=== PATIENT | male | born 1990 | race Caucasian/White ===

== ENCOUNTER 2016-09-22 00:38 | Emergency (ER) | payer MEDICAID ==
[~2016-09-22] VITALS: Ht 165.1 cm; Wt 90.0 kg
[2016-09-22 00:41] VITALS: BP_SYST 150
== END 2016-09-22 05:11 | disposition left against medical advice (07) ==
LOC: ER 00:41
DX: R51 Headache (principal); Z53.21 Procedure and treatment not carried out due to patient leaving prior to being seen by health care provider

== ENCOUNTER 2023-05-30 18:10 | Emergency (ER) | payer MEDICAID, OTHER ==
[~2023-05-30] VITALS: Ht 177.8 cm; Wt 118.0 kg
[2023-05-30 18:29] VITALS: O2SAT 96
[2023-05-30] MEDS ORDERED: MORPHINE SULFATE 4 MG/ML INJ (FOR IV/IM USE) IV STA (18:52)
[2023-05-30] MEDS ORDERED: ONDANSETRON HCL 4MG/2ML INJ IV STA (18:52)
[2023-05-30] MEDS: SODIUM CHLORIDE 0.9% 1,000 ML IV ONE (19:00)
[2023-05-30] MEDS ORDERED: TETANUS, DIPHTHERIA, PERTUSSIS VAC/PF 0.5ML (>10YR OLD) IM ONE (19:00)
[2023-05-30 19:42] LABS: BASOPHILS % 1.1 % (0.0-2.0); EOSINOPHILS % 0.6 % (0.0-5.0); HEMATOCRIT. 38.2 % (42.0-52.0); HEMOGLOBIN. 13.2 g/dL (14.0-18.0); LYMPHOCYTES % 26.3 % (20.0-50.0); MEAN CORPUSCULAR HEMOGLOBIN 32.5 pg (28.0-32.0); MEAN CORPUSCULAR HGB CONC 34.5 g/dL (31.0-37.0); MEAN PLATELET VOLUME 7.7 fl (7.4-10.4); MONOCYTES % 8.3 % (2.0-8.0); NEUTROPHILS % 63.7 % (40.0-76.0); PLATELET 314 x1000/uL (130-400); RED BLOOD CELL COUNT 4.07 mill/uL (4.7-6.1); RED CELL DISTRIBUTION WIDTH 13.5 % (11.6-14.6); WHITE BLOOD COUNT 8.1 x1000/uL (4.5-11.0)
[2023-05-30 19:57] LABS: ALANINE AMINOTRANSFERASE 463 IU/L (10-49); ALBUMIN 4.8 g/dL (3.2-4.8); ASPARTATE AMINOTRANSFERASE 215 IU/L (<34); BILIRUBIN TOTAL 0.3 mg/dL (0.1-1.0); CALCIUM 8.7 mg/dL (8.7-10.4); CARBON DIOXIDE 20 mEq/L (21-32); CHLORIDE 108 mEq/L (98-107); CREATININE 0.8 mg/dL (0.6-1.3); ETHANOL BLOOD 254 mg/dL (<10); GLUCOSE 98 mg/dL (70-105); POTASSIUM 3.8 mEq/L (3.5-5.1); PROTEIN TOTAL 7.7 g/dL (6.0-8.3); SODIUM 139 mEq/L (136-145); UREA NITROGEN BLOOD 8 mg/dL (9-23)
[2023-05-30] MEDS: TETANUS, DIPHTHERIA, PERTUSSIS VAC/PF 0.5ML (>10YR OLD) IM ONE (21:15)
[2023-05-30] MEDS: ONDANSETRON HCL 4MG/2ML INJ IV NR (21:31)
[2023-05-30] MEDS: MORPHINE SULFATE 4 MG/ML INJ (FOR IV/IM USE) IV NR (21:31)
[2023-05-30 21:34] VITALS: BP 125/80; PULSE 96; RESP 20; TEMP 98.4
[2023-05-30] MEDS ORDERED: AMOX1TAB16 MT (21:56)
[2023-05-30] MEDS ORDERED: IBUP-2028 MT (21:56)
== END 2023-05-30 22:15 | disposition home or self-care (01) ==
LOC: ER 18:10
DX: S71.151A Open bite, right thigh, initial encounter (principal); S71.131A Puncture wound without foreign body, right thigh, initial encounter; R00.0 Tachycardia, unspecified; W54.0XXA Bitten by dog, initial encounter; Y93.89 Activity, other specified; Y92.89 Other specified places as the place of occurrence of the external cause; Y99.8 Other external cause status
CPT/HCPCS: 80053; 80320; 85025; 36415; 73552; 73564; 73590; 90715; 93005; 90471; 96361; 96374; 96375; 99285; J2405; J2270; J7030; Z7610 ×2; G0480

== ENCOUNTER 2023-07-03 16:01 | Inpatient (IN) | payer OTHER ==
[~2023-07-03] VITALS: Ht 177.8 cm; Wt 114.3 kg
[~2023-07-03 16:01] MED LIST: AMOX1TAB16 MT; IBUP-2028 MT
[2023-07-03 16:34] LABS: BASOPHILS % 0.5 % (0.0-2.0); EOSINOPHILS % 0.5 % (0.0-5.0); HEMATOCRIT. 41.1 % (42.0-52.0); HEMOGLOBIN. 14.3 g/dL (14.0-18.0); LYMPHOCYTES % 11.5 % (20.0-50.0); MEAN CORPUSCULAR HEMOGLOBIN 32.5 pg (28.0-32.0); MEAN CORPUSCULAR HGB CONC 34.9 g/dL (31.0-37.0); MEAN CORPUSCULAR VOLUME 93.1 fL (80.0-94.0); MEAN PLATELET VOLUME 7.8 fl (7.4-10.4); NEUTROPHILS % 83.5 % (40.0-76.0); PLATELET 162 x1000/uL (130-400); RED BLOOD CELL COUNT 4.41 mill/uL (4.7-6.1); RED CELL DISTRIBUTION WIDTH 12.9 % (11.6-14.6); WHITE BLOOD COUNT 10.2 x1000/uL (4.5-11.0)
[2023-07-03 16:40] LABS: CHLORIDE 102 mEq/L (98-107); SODIUM 134 mEq/L (136-145)
[2023-07-03 16:41] LABS: CALCIUM 10.3 mg/dL (8.7-10.4); CARBON DIOXIDE 21 mEq/L (21-32)
[2023-07-03 16:46] LABS: CREATININE 1.1 mg/dL (0.6-1.3); GLUCOSE 110 mg/dL (70-105); UREA NITROGEN BLOOD 16 mg/dL (9-23)
[2023-07-03 17:56] LABS: CLARITY URINE CLOUDY (CLEAR); COLOR URINE DARK YELLOW (YELLOW); GLUCOSE URINE NEGATIVE (NEGATIVE); KETONES URINE 3+ (NEGATIVE); LEUKOCYTE ESTERASE URINE TRACE (NEGATIVE); NITRITE URINE NEGATIVE (NEGATIVE); OCCULT BLOOD URINE NEGATIVE (NEGATIVE); PROTEIN URINE 2+ (NEGATIVE); SPECIFIC GRAVITY URINE 1.026 (1.005-1.030)
[2023-07-03 18:06] LABS: ALANINE AMINOTRANSFERASE 184 IU/L (10-49); ALBUMIN 5.3 g/dL (3.2-4.8); ASPARTATE AMINOTRANSFERASE 320 IU/L (<34); BILIRUBIN DIRECT 0.4 mg/dL (<=3.0); PROTEIN TOTAL 9.3 g/dL (6.0-8.3)
[2023-07-03 18:30] LABS: HYALINE CASTS URINE 0-5 /lpf; RBC URINE NONE SEEN /hpf (0-2); WBC URINE 0-2 /hpf (0-2)
[2023-07-03 18:31] LABS: BACTERIA URINE TRACE; SQUAMOUS EPITHELIAL CELL URINE FEW /lpf (RARE/1+)
[2023-07-03] MEDS: LORAZEPAM 1MG TABLET PO ONE (18:34)
[2023-07-03] MEDS: FAMOTIDINE 20MG TABLET PO ONE (18:34)
[2023-07-03] MEDS: ONDANSETRON 4MG ODT PO ONE (18:34)
[2023-07-03 18:36] LABS: ETHANOL BLOOD 59 mg/dL (<10)
[2023-07-03 18:39] LABS: TROPONIN I HIGH SENSITIVITY < 4 ng/L (3.0-53)
[2023-07-03] MEDS ORDERED: FOLIC ACID 1 MG, THIAMINE HCL 100 MG, MVI, ADULT NO.1 10 ML in DEXTROSE 5% WATER 1,000 ML IV ONE (22:15)
[2023-07-03] MEDS ORDERED: MIDAZOLAM HCL 2 MG/2 ML VIAL IV ONE (22:15)
[2023-07-03] MEDS: SODIUM CHLORIDE 0.9% 1,000 ML IV ONE (23:10)
[2023-07-04 01:30] VITALS: BP 137/89; PULSE 111; RESP 17; TEMP 97.4
[2023-07-04] MEDS ORDERED: ONDANSETRON HCL 4MG/2ML INJ IV PRN ×2 (02:15→14:30)
[2023-07-04] MEDS: GUAIFENESIN-DM 200MG-20MG/10ML UDC PO PRN (04:38)
[2023-07-04] MEDS: CHLORDIAZEPOXIDE 25MG CAPSULE PO SCH (05:52)
[2023-07-04 08:00] VITALS: BP 130/90; PULSE 98; RESP 20; TEMP 100.6
[2023-07-04 08:03] LABS: HEPATITIS B SURFACE ANTIGEN NEGATIVE (Negative)
[2023-07-04] MEDS: MULTIVITAMINS,THER W-MINERALS TABLET PO SCH (08:23)
[2023-07-04] MEDS: THIAMINE HCL 100MG TABLET PO SCH (08:23)
[2023-07-04] MEDS: FOLIC ACID 1MG TABLET PO SCH (08:23)
[2023-07-04 08:24] LABS: HEPATITIS C AB NON REACTIVE (Neg) (Negative)
[2023-07-04] MEDS: PANTOPRAZOLE SODIUM 40 MG/VIAL IV SCH (09:37)
[2023-07-04 12:00] VITALS: BP 132/86; PULSE 88; RESP 20; TEMP 99
[2023-07-04] MEDS ORDERED: MAGNESIUM/ALUMINUM HYDROXIDE/SIMETHICONE 30ML UDC PO PRN (14:30)
[2023-07-04] MEDS ORDERED: ACETAMINOPHEN 325MG TABLET PO PRN ×2 (14:30→14:45)
[2023-07-04] MEDS ORDERED: HYDROCODONE/ACETAMINOPHEN 5/325MG TABLET PO PRN (14:30)
[2023-07-04] MEDS ORDERED: NALOXONE HCL 0.4MG/ML VIAL IV PRN (14:45)
[2023-07-04] MEDS: ENOXAPARIN 40MG/0.4ML SYR SUBCUT SCH (15:18)
[2023-07-04 16:00] VITALS: BP 145/93; PULSE 98; RESP 20; TEMP 98.6
[2023-07-04 16:57] LABS: CLARITY URINE CLEAR (CLEAR); COLOR URINE ORANGE (YELLOW); GLUCOSE URINE NEGATIVE (NEGATIVE); KETONES URINE 1+ (NEGATIVE); LEUKOCYTE ESTERASE URINE 1+ (NEGATIVE); NITRITE URINE POSITIVE (NEGATIVE); OCCULT BLOOD URINE NEGATIVE (NEGATIVE); PH URINE 6.5 (4.5-8.0); PROTEIN URINE TRACE (NEGATIVE); SPECIFIC GRAVITY URINE 1.036 (1.005-1.030)
[2023-07-04] MEDS ORDERED: SENNOSIDES/DOCUSATE SOD 8.6/50MG TABLET PO PRN (17:00)
[2023-07-04] MEDS: BISACODYL 10MG SUPP PR NR (17:14)
[2023-07-04] MEDS: LACTULOSE 20G/30ML UDC PO NR (17:14)
[2023-07-04 17:43] LABS: *AMPHETAMINES SCREEN URINE NEGATIVE (NEGATIVE); *BARBITURATES SCREEN URINE NEGATIVE (NEGATIVE); *BENZODIAZEPINES SCREEN URINE PRESUMPTIVE POSITIVE (NEGATIVE); *COCAINE SCREEN URINE NEGATIVE (NEGATIVE); CANNABINOID URINE SCREEN PRESUMPTIVE POSITIVE (NEGATIVE); ECSTASY MDMA SCREEN URINE NEGATIVE (NEGATIVE); METHADONE URINE SCREEN NEGATIVE (NEGATIVE); OPIATES URINE SCREEN NEGATIVE (NEGATIVE); PHENCYCLIDINE URINE SCREEN NEGATIVE (NEGATIVE)
[2023-07-04 17:47] LABS: BACTERIA URINE 1+; RBC URINE 0-2 /hpf (0-2); SQUAMOUS EPITHELIAL CELL URINE FEW /lpf (RARE/1+)
[2023-07-04 20:00] VITALS: BP 138/89; PULSE 103; RESP 20; TEMP 97.1
[2023-07-05 00:01] VITALS: BP 117/62; PULSE 108; RESP 17; TEMP 97.8
[2023-07-05 04:00] VITALS: BP 120/71; PULSE 93; RESP 18; TEMP 97.1
[2023-07-05 06:06] LABS: BASOPHILS % 0.6 % (0.0-2.0); EOSINOPHILS % 6.1 % (0.0-5.0); HEMOGLOBIN. 12.9 g/dL (14.0-18.0); LYMPHOCYTES % 19.3 % (20.0-50.0); MEAN CORPUSCULAR HEMOGLOBIN 32.9 pg (28.0-32.0); MEAN CORPUSCULAR HGB CONC 35.9 g/dL (31.0-37.0); MEAN CORPUSCULAR VOLUME 91.6 fL (80.0-94.0); MEAN PLATELET VOLUME 8.7 fl (7.4-10.4); MONOCYTES % 5.5 % (2.0-8.0); NEUTROPHILS % 68.5 % (40.0-76.0); PLATELET 92 x1000/uL (130-400); RED BLOOD CELL COUNT 3.93 mill/uL (4.7-6.1); RED CELL DISTRIBUTION WIDTH 12.9 % (11.6-14.6); WHITE BLOOD COUNT 7.3 x1000/uL (4.5-11.0)
[2023-07-05 06:31] LABS: CARBON DIOXIDE 23 mEq/L (21-32); CHLORIDE 103 mEq/L (98-107); POTASSIUM 3.1 mEq/L (3.5-5.1); SODIUM 135 mEq/L (136-145)
[2023-07-05 06:32] LABS: CALCIUM 9.9 mg/dL (8.7-10.4)
[2023-07-05 06:36] LABS: CREATININE 0.7 mg/dL (0.6-1.3)
[2023-07-05 06:37] LABS: GLUCOSE 88 mg/dL (70-105); TRIGLYCERIDE 160 mg/dL (0-150); UREA NITROGEN BLOOD 11 mg/dL (9-23)
[2023-07-05 06:38] LABS: ALANINE AMINOTRANSFERASE 204 IU/L (10-49); ALBUMIN 4.4 g/dL (3.2-4.8); ASPARTATE AMINOTRANSFERASE 238 IU/L (<34); LDL CHOLESTEROL 172 mg/dL (5-100); PROTEIN TOTAL 7.5 g/dL (6.0-8.3)
[2023-07-05 06:39] LABS: BILIRUBIN DIRECT 0.5 mg/dL (<=3.0); BILIRUBIN TOTAL 1.3 mg/dL (0.1-1.0); CHOLESTEROL 217 mg/dL (<200); HDL CHOLESTEROL 51 mg/dL (>55); PHOSPHORUS 3.3 mg/dL (2.5-4.9)
[2023-07-05 06:40] LABS: T4 FREE 1.18 ng/dL (0.89-1.76)
[2023-07-05 06:47] LABS: TROPONIN I HIGH SENSITIVITY < 4 ng/L (3.0-53)
[2023-07-05 08:00] VITALS: BP 141/98; PULSE 118; RESP 18; TEMP 98.1
[2023-07-05] MEDS: CLONIDINE 0.1MG TABLET PO PRN (09:34)
[2023-07-05 12:00] VITALS: BP 118/65; PULSE 89; RESP 18; TEMP 97.7
[2023-07-05] MEDS: POTASSIUM CHLORIDE 20MEQ TABLET SR PO SCH (12:16)
[2023-07-05] MEDS: MAGNESIUM 2 G PREMIX 50 ML IV SCH (12:16)
[2023-07-05 16:00] VITALS: BP 102/73; PULSE 81; RESP 18; TEMP 97.8
[2023-07-05] MEDS ORDERED: CHLO25CA10 PO (17:28)
[2023-07-05] MEDS ORDERED: FOLI-43 PO (17:28)
[2023-07-05] MEDS ORDERED: THIA100T72 PO (17:28)
[2023-07-05] MEDS ORDERED: NITR100C MT (17:30)
[2023-07-05 17:49] VITALS: BP 102/73; PULSE 81; TEMP 97.7; O2SAT 98
== END 2023-07-05 19:12 | disposition home or self-care (01) | DRG 247 ==
LOC: ER 16:01 → 8WST 23:21 → EDBEDREQ 23:36 → EDBEDREQTM 23:36
PROVIDERS: ADMIT Internal Medicine; ATTEND Internal Medicine
DX: K56.41 Fecal impaction (principal); K76.0 Fatty (change of) liver, not elsewhere classified; F10.129 Alcohol abuse with intoxication, unspecified; K57.90 Diverticulosis of intestine, part unspecified, without perforation or abscess without bleeding; N39.0 Urinary tract infection, site not specified; Z20.822 Contact with and (suspected) exposure to COVID-19
CPT/HCPCS: 36415; 71045; 74176; 76705; 80048; 80061; 80076; 80305; 80320; 81003; 83735; 84100; 84439; 84484; 85025; 86705; 87340; 87426; 93005; 93970; 99285; C9113; J1650; J3411; J3475; J3490; J7030; J7070; Q0162; G0480

== ENCOUNTER 2023-07-21 19:45 | Emergency (ER) | payer OTHER ==
[~2023-07-21] VITALS: Ht 172.7 cm; Wt 112.4 kg
[~2023-07-21 19:45] MED LIST changes: -AMOX1TAB16 MT; +CHLO25CA10 PO; +FOLI-43 PO; -IBUP-2028 MT; +NITR100C MT; +THIA100T72 PO
[2023-07-21 19:54] VITALS: BP 145/99; PULSE 113; RESP 22; TEMP 98.1; O2SAT 97
[2023-07-21 20:31] LABS: BASOPHILS % 3.1 % (0.0-2.0); EOSINOPHILS % 3.1 % (0.0-5.0); HEMATOCRIT. 36.8 % (42.0-52.0); HEMOGLOBIN. 13.1 g/dL (14.0-18.0); LYMPHOCYTES % 37.1 % (20.0-50.0); MEAN CORPUSCULAR HEMOGLOBIN 32.5 pg (28.0-32.0); MEAN CORPUSCULAR HGB CONC 35.6 g/dL (31.0-37.0); MEAN CORPUSCULAR VOLUME 91.2 fL (80.0-94.0); NEUTROPHILS % 53.7 % (40.0-76.0); PLATELET 395 x1000/uL (130-400); RED BLOOD CELL COUNT 4.04 mill/uL (4.7-6.1); RED CELL DISTRIBUTION WIDTH 12.9 % (11.6-14.6); WHITE BLOOD COUNT 4.5 x1000/uL (4.5-11.0)
[2023-07-21 20:36] LABS: CARBON DIOXIDE 24 mEq/L (21-32); CHLORIDE 106 mEq/L (98-107); POTASSIUM 3.6 mEq/L (3.5-5.1); SODIUM 138 mEq/L (136-145)
[2023-07-21 20:37] LABS: CALCIUM 8.9 mg/dL (8.7-10.4)
[2023-07-21 20:41] LABS: CREATININE 0.8 mg/dL (0.6-1.3); GLUCOSE 164 mg/dL (70-105)
[2023-07-21 20:42] LABS: UREA NITROGEN BLOOD 6 mg/dL (9-23)
[2023-07-21 20:43] LABS: ALANINE AMINOTRANSFERASE 130 IU/L (10-49); ALBUMIN 4.9 g/dL (3.2-4.8); ASPARTATE AMINOTRANSFERASE 122 IU/L (<34)
[2023-07-21 20:44] LABS: BILIRUBIN DIRECT 0.2 mg/dL (<=3.0); BILIRUBIN TOTAL 0.4 mg/dL (0.1-1.0)
== END 2023-07-21 23:45 | disposition left against medical advice (07) ==
LOC: ER 19:45
DX: R11.10 Vomiting, unspecified (principal); Z53.21 Procedure and treatment not carried out due to patient leaving prior to being seen by health care provider
CPT/HCPCS: 36415; 80048; 80076; 80320; 85025; G0480

== ENCOUNTER 2023-07-24 10:00 | Emergency (ER) | payer OTHER ==
[~2023-07-24] VITALS: Ht 177.8 cm; Wt 105.0 kg
[2023-07-24 10:03] VITALS: O2SAT 96
[2023-07-24] MEDS: LORAZEPAM 2MG/ML INJ IV ONE (10:43)
[2023-07-24] MEDS: FOLIC ACID 1 MG, THIAMINE HCL 100 MG, MVI, ADULT NO.1 10 ML in DEXTROSE 5% WATER 1,000 ML IV ONE (10:48)
[2023-07-24 11:21] LABS: EOSINOPHILS % 4.3 % (0.0-5.0); HEMOGLOBIN. 13.4 g/dL (14.0-18.0); LYMPHOCYTES % 17.8 % (20.0-50.0); MEAN CORPUSCULAR HGB CONC 35.3 g/dL (31.0-37.0); MEAN CORPUSCULAR VOLUME 90.7 fL (80.0-94.0); MEAN PLATELET VOLUME 8.6 fl (7.4-10.4); MONOCYTES % 4.1 % (2.0-8.0); NEUTROPHILS % 72.8 % (40.0-76.0); PLATELET 180 x1000/uL (130-400); RED BLOOD CELL COUNT 4.19 mill/uL (4.7-6.1); RED CELL DISTRIBUTION WIDTH 13.5 % (11.6-14.6); WHITE BLOOD COUNT 7.6 x1000/uL (4.5-11.0)
[2023-07-24 11:34] LABS: CHLORIDE 102 mEq/L (98-107); POTASSIUM 3.3 mEq/L (3.5-5.1); SODIUM 136 mEq/L (136-145)
[2023-07-24 11:35] LABS: CALCIUM 9.4 mg/dL (8.7-10.4); CARBON DIOXIDE 24 mEq/L (21-32)
[2023-07-24 11:36] LABS: PARTIAL THROMBOPLASTIN TIME 26.9 sec (23.4-31.0); PROTHROMBIN TIME 10.9 sec (9.6-11.0)
[2023-07-24 11:40] LABS: CREATININE 0.9 mg/dL (0.6-1.3); GLUCOSE 118 mg/dL (70-105); UREA NITROGEN BLOOD 8 mg/dL (9-23)
[2023-07-24 11:42] LABS: ALANINE AMINOTRANSFERASE 138 IU/L (10-49); ALBUMIN 4.5 g/dL (3.2-4.8); ASPARTATE AMINOTRANSFERASE 245 IU/L (<34); BILIRUBIN DIRECT 0.4 mg/dL (<=3.0)
[2023-07-24 11:43] LABS: BILIRUBIN TOTAL 1.3 mg/dL (0.1-1.0); PROTEIN TOTAL 7.9 g/dL (6.0-8.3)
[2023-07-24] MEDS: CHLORDIAZEPOXIDE 25MG CAPSULE PO ONE (11:47)
[2023-07-24 11:49] LABS: ETHANOL BLOOD < 10 mg/dL (<10)
[2023-07-24] MEDS ORDERED: CHLO25CA10 MT (12:22)
[2023-07-24] MEDS: POTASSIUM CHLORIDE 20MEQ TABLET SR PO ONE (12:49)
[2023-07-24 13:06] LABS: TROPONIN I HIGH SENSITIVITY < 4 ng/L (3.0-53)
[2023-07-24 13:13] LABS: CLARITY URINE CLEAR (CLEAR); COLOR URINE ORANGE (YELLOW); GLUCOSE URINE NEGATIVE (NEGATIVE); KETONES URINE 3+ (NEGATIVE); LEUKOCYTE ESTERASE URINE TRACE (NEGATIVE); NITRITE URINE NEGATIVE (NEGATIVE); OCCULT BLOOD URINE NEGATIVE (NEGATIVE); PROTEIN URINE 1+ (NEGATIVE); SPECIFIC GRAVITY URINE 1.021 (1.005-1.030)
[2023-07-24 13:59] VITALS: BP 126/78; PULSE 91; RESP 24; TEMP 98.2
[2023-07-24 14:04] LABS: MUCUS URINE 1+ /lpf (NONE/TRACE)
[2023-07-24 14:09] LABS: BACTERIA URINE TRACE
[2023-07-24 14:10] LABS: RBC URINE NONE SEEN /hpf (0-2); SQUAMOUS EPITHELIAL CELL URINE NONE SEEN /lpf (RARE/1+); WBC URINE 0-2 /hpf (0-2)
== END 2023-07-24 14:03 | disposition home or self-care (01) ==
LOC: ER 10:00
DX: F10.239 Alcohol dependence with withdrawal, unspecified (principal); F10.229 Alcohol dependence with intoxication, unspecified; Z91.013 Allergy to seafood; Z79.899 Other long term (current) drug therapy; Z86.59 Personal history of other mental and behavioral disorders; Y90.0 Blood alcohol level of less than 20 mg/100 ml
CPT/HCPCS: 80076; 80048; 81003; 80320; 83690; 85025; 85610; 85730; 84484; 36415; 71045; 93005; 96361; 96374; 99285; J3490 ×2; J2060; J3411; J7070; G0480

== ENCOUNTER 2023-11-01 04:17 | Emergency (ER) | payer OTHER ==
[~2023-11-01] VITALS: Ht 177.8 cm; Wt 115.0 kg
[~2023-11-01 04:17] MED LIST changes: +CHLO25CA10 MT
[2023-11-01 04:27] VITALS: BP 147/104; RESP 17; TEMP 98.6; O2SAT 97
[2023-11-01 04:28] VITALS: PULSE 127; O2SAT 98
[2023-11-02] MEDS ORDERED: FAMO-135 MT (07:20)
== END 2023-11-01 07:59 | disposition left against medical advice (07) ==
LOC: ER 04:17
DX: R10.9 Unspecified abdominal pain (principal); Z53.21 Procedure and treatment not carried out due to patient leaving prior to being seen by health care provider

== ENCOUNTER 2023-11-02 04:25 | Emergency (ER) | payer OTHER ==
[~2023-11-02] VITALS: Ht 175.3 cm; Wt 114.0 kg
[2023-11-02 04:33] VITALS: O2SAT 98
[2023-11-02 05:06] LABS: EOSINOPHILS % 1.2 % (0.0-5.0); HEMATOCRIT. 39.7 % (42.0-52.0); HEMOGLOBIN. 14.4 g/dL (14.0-18.0); LYMPHOCYTES % 51.9 % (20.0-50.0); MEAN CORPUSCULAR HGB CONC 36.2 g/dL (31.0-37.0); MEAN CORPUSCULAR VOLUME 88.6 fL (80.0-94.0); MEAN PLATELET VOLUME 7.1 fl (7.4-10.4); MONOCYTES % 8.9 % (2.0-8.0); PLATELET 226 x1000/uL (130-400); RED BLOOD CELL COUNT 4.48 mill/uL (4.7-6.1); RED CELL DISTRIBUTION WIDTH 13.3 % (11.6-14.6); WHITE BLOOD COUNT 7.1 x1000/uL (4.5-11.0)
[2023-11-02 05:09] LABS: CLARITY URINE CLEAR (CLEAR); COLOR URINE YELLOW (YELLOW); GLUCOSE URINE NEGATIVE (NEGATIVE); KETONES URINE NEGATIVE (NEGATIVE); LEUKOCYTE ESTERASE URINE NEGATIVE (NEGATIVE); NITRITE URINE NEGATIVE (NEGATIVE); OCCULT BLOOD URINE NEGATIVE (NEGATIVE); PH URINE 5.5 (4.5-8.0); PROTEIN URINE 1+ (NEGATIVE); SPECIFIC GRAVITY URINE 1.014 (1.005-1.030); UROBILINOGEN URINE 0.2 E.U./dL (0.2-1.0)
[2023-11-02 05:12] LABS: DIFFERENTIAL COMMENT 1
[2023-11-02 05:18] LABS: CHLORIDE 102 mEq/L (98-107); POTASSIUM 3.3 mEq/L (3.5-5.1); SODIUM 138 mEq/L (136-145)
[2023-11-02 05:19] LABS: CALCIUM 9.3 mg/dL (8.7-10.4); CARBON DIOXIDE 24 mEq/L (21-32)
[2023-11-02 05:24] LABS: GLUCOSE 114 mg/dL (70-105); UREA NITROGEN BLOOD 10 mg/dL (9-23)
[2023-11-02 05:26] LABS: ALANINE AMINOTRANSFERASE 66 IU/L (10-49); ALBUMIN 4.8 g/dL (3.2-4.8); ASPARTATE AMINOTRANSFERASE 101 IU/L (<34); BILIRUBIN TOTAL 0.5 mg/dL (0.1-1.0); PROTEIN TOTAL 8.2 g/dL (6.0-8.3)
[2023-11-02 05:34] LABS: ETHANOL BLOOD 318 mg/dL (<10)
[2023-11-02 05:41] LABS: BACTERIA URINE NONE SEEN; RBC URINE 0-2 /hpf (0-2); SQUAMOUS EPITHELIAL CELL URINE NONE SEEN /lpf (RARE/1+); WBC URINE 0-2 /hpf (0-2)
[2023-11-02 06:36] LABS: BILIRUBIN DIRECT < 0.1 mg/dL (<=3.0); CREATININE 0.9 mg/dL (0.6-1.3)
[2023-11-02] MEDS ORDERED: PANTOPRAZOLE 40MG DR TABLET PO ONE (06:45)
[2023-11-02] MEDS ORDERED: MAGNESIUM/ALUMINUM HYDROXIDE/SIMETHICONE 30ML UDC PO ONE (06:45)
[2023-11-02] MEDS ORDERED: FAMO-135 MT (07:20)
[2023-11-02] MEDS ORDERED: POTASSIUM CHLORIDE 20MEQ TABLET SR PO ONE (07:30)
[2023-11-02] MEDS ORDERED: ONDANSETRON 4MG ODT PO ONE (08:00)
[2023-11-02] MEDS: ONDANSETRON 4MG ODT PO NR (08:05)
[2023-11-02] MEDS: PANTOPRAZOLE 40MG DR TABLET PO NR (08:06)
[2023-11-02] MEDS: MAGNESIUM/ALUMINUM HYDROXIDE/SIMETHICONE 30ML UDC PO NR (08:06)
[2023-11-02] MEDS: POTASSIUM CHLORIDE 20MEQ TABLET SR PO NR (08:06)
[2023-11-02 10:18] VITALS: BP 136/89; PULSE 99; RESP 18; TEMP 36.50292; O2SAT 96
== END 2023-11-02 10:20 | disposition home or self-care (01) ==
LOC: ER 04:25
DX: K29.20 Alcoholic gastritis without bleeding (principal); F10.129 Alcohol abuse with intoxication, unspecified; Z91.013 Allergy to seafood; Z79.899 Other long term (current) drug therapy; Y90.8 Blood alcohol level of 240 mg/100 ml or more
CPT/HCPCS: 36415; 80048; 80076; 80320; 81003; 85025; 99284; Q0162; G0480

== ENCOUNTER 2023-11-05 16:33 | Emergency (ER) | payer MEDICAID, OTHER ==
[~2023-11-05] VITALS: Ht 177.8 cm; Wt 120.0 kg
[~2023-11-05 16:33] MED LIST changes: +FAMO-135 MT
[2023-11-05 16:40] VITALS: TEMP 98.5; O2SAT 99
[2023-11-05 20:29] LABS: BASOPHILS % 0.9 % (0.0-2.0); EOSINOPHILS % 0.6 % (0.0-5.0); HEMATOCRIT. 41.4 % (42.0-52.0); HEMOGLOBIN. 14.4 g/dL (14.0-18.0); LYMPHOCYTES % 22.8 % (20.0-50.0); MEAN CORPUSCULAR HEMOGLOBIN 31.3 pg (28.0-32.0); MEAN CORPUSCULAR HGB CONC 34.9 g/dL (31.0-37.0); MEAN CORPUSCULAR VOLUME 89.6 fL (80.0-94.0); MEAN PLATELET VOLUME 7.6 fl (7.4-10.4); MONOCYTES % 5.1 % (2.0-8.0); NEUTROPHILS % 70.6 % (40.0-76.0); PLATELET 163 x1000/uL (130-400); RED BLOOD CELL COUNT 4.61 mill/uL (4.7-6.1); RED CELL DISTRIBUTION WIDTH 13.2 % (11.6-14.6); WHITE BLOOD COUNT 6.1 x1000/uL (4.5-11.0)
[2023-11-05] MEDS: ONDANSETRON HCL 4MG/2ML INJ IV STA (20:29)
[2023-11-05] MEDS: KETOROLAC 15MG/ML VIAL IV ONE ×2 (20:29→22:28)
[2023-11-05] MEDS: SODIUM CHLORIDE 0.9% 1,000 ML IV ONE (20:30)
[2023-11-05 20:41] LABS: CHLORIDE 102 mEq/L (98-107); POTASSIUM 3.9 mEq/L (3.5-5.1); SODIUM 137 mEq/L (136-145)
[2023-11-05 20:42] LABS: CARBON DIOXIDE 23 mEq/L (21-32)
[2023-11-05 20:43] LABS: CALCIUM 9.4 mg/dL (8.7-10.4)
[2023-11-05 20:48] LABS: ETHANOL BLOOD 300 mg/dL (<10); GLUCOSE 119 mg/dL (70-105); UREA NITROGEN BLOOD 12 mg/dL (9-23)
[2023-11-05 20:49] LABS: ALANINE AMINOTRANSFERASE 89 IU/L (10-49); ASPARTATE AMINOTRANSFERASE 130 IU/L (<34)
[2023-11-05 20:50] LABS: BILIRUBIN DIRECT 0.1 mg/dL (<=3.0); BILIRUBIN TOTAL 0.6 mg/dL (0.1-1.0); PROTEIN TOTAL 8.6 g/dL (6.0-8.3)
[2023-11-05 22:25] VITALS: BP 155/110; PULSE 82; RESP 16; O2SAT 99
[2023-11-05] MEDS ORDERED: FAMO-135 PO (22:26)
[2023-11-05] MEDS: FAMOTIDINE 20MG/2ML VIAL IV ONE (22:28)
== END 2023-11-05 22:45 | disposition home or self-care (01) ==
LOC: ER 16:33
DX: F10.129 Alcohol abuse with intoxication, unspecified (principal); R10.13 Epigastric pain; Z91.013 Allergy to seafood; Y90.8 Blood alcohol level of 240 mg/100 ml or more
CPT/HCPCS: 80076; 80048; 80320; 83690; 85025; 36415; 71045; 74176; 93005; 96361; 96374; 96375; 96376; 99285; J3490; J1885; J2405; J7030; Z7610 ×2; G0480

== ENCOUNTER 2024-03-08 10:38 | Emergency (ER) | payer OTHER ==
[~2024-03-08] VITALS: Ht 177.8 cm; Wt 104.0 kg
[~2024-03-08 10:38] MED LIST changes: -CHLO25CA10 MT; -CHLO25CA10 PO; +CHLO25CA11 MT; +MULT-230 MT; -NITR100C MT
[2024-03-08 10:48] VITALS: O2SAT 100
[2024-03-08 10:49] VITALS: BP 153/108; PULSE 81; RESP 16; TEMP 98.3; O2SAT 98
[2024-03-08] MEDS ORDERED: CHLO25CA11 MT (11:00)
[2024-03-08] MEDS ORDERED: MULT-230 MT (11:00)
== END 2024-03-08 11:05 | disposition home or self-care (01) ==
LOC: ER 10:38
DX: F10.90 Alcohol use, unspecified, uncomplicated (principal); Z68.32 Body mass index [BMI] 32.0-32.9, adult; Z91.013 Allergy to seafood; Z79.899 Other long term (current) drug therapy; Z76.0 Encounter for issue of repeat prescription; Y90.9 Presence of alcohol in blood, level not specified
CPT/HCPCS: 99281

== ENCOUNTER 2024-05-26 19:36 | Emergency (ER) | payer OTHER ==
[~2024-05-26] VITALS: Ht 170.2 cm; Wt 95.0 kg
[2024-05-26 19:53] VITALS: O2SAT 98
[2024-05-26 19:54] VITALS: BP 142/106; PULSE 18; RESP 18; TEMP 36.8; O2SAT 98
[2024-05-26] MEDS: PANTOPRAZOLE SODIUM 40 MG/VIAL IV STA (20:42)
[2024-05-26 21:06] LABS: BASOPHILS % 0.9 % (0.0-2.0); EOSINOPHILS % 1.5 % (0.0-5.0); HEMATOCRIT. 41.7 % (42.0-52.0); HEMOGLOBIN. 14.5 g/dL (14.0-18.0); LYMPHOCYTES % 40.8 % (20.0-50.0); MEAN CORPUSCULAR HEMOGLOBIN 32.7 pg (28.0-32.0); MEAN CORPUSCULAR HGB CONC 34.9 g/dL (31.0-37.0); MEAN CORPUSCULAR VOLUME 93.7 fL (80.0-94.0); MEAN PLATELET VOLUME 7.3 fl (7.4-10.4); MONOCYTES % 6.5 % (2.0-8.0); NEUTROPHILS % 50.3 % (40.0-76.0); PLATELET 394 x1000/uL (130-400); RED BLOOD CELL COUNT 4.45 mill/uL (4.7-6.1); RED CELL DISTRIBUTION WIDTH 13.6 % (11.6-14.6); WHITE BLOOD COUNT 7.3 x1000/uL (4.5-11.0)
[2024-05-26 21:16] LABS: CHLORIDE 107 mEq/L (98-107); POTASSIUM 3.9 mEq/L (3.5-5.1); PROTHROMBIN TIME 10.8 sec (9.6-11.0); SODIUM 141 mEq/L (136-145)
[2024-05-26 21:17] LABS: CALCIUM 9.8 mg/dL (8.7-10.4); CARBON DIOXIDE 22 mEq/L (21-32)
[2024-05-26 21:22] LABS: CREATININE 0.8 mg/dL (0.6-1.3); GLUCOSE 139 mg/dL (70-105)
[2024-05-26 21:23] LABS: UREA NITROGEN BLOOD 9 mg/dL (9-23)
[2024-05-26 21:24] LABS: ALANINE AMINOTRANSFERASE 239 IU/L (10-49); ALBUMIN 4.9 g/dL (3.2-4.8); ASPARTATE AMINOTRANSFERASE 207 IU/L (<34); BILIRUBIN DIRECT 0.1 mg/dL (<=3.0)
[2024-05-26 21:25] LABS: BILIRUBIN TOTAL 0.4 mg/dL (0.1-1.0); PROTEIN TOTAL 8.8 g/dL (6.0-8.3)
[2024-05-26] MEDS ORDERED: THIA100T72 PO (23:18)
[2024-05-26] MEDS ORDERED: FOLI-43 PO (23:18)
[2024-05-26] MEDS ORDERED: PROT20 MT (23:18)
[2024-05-26] MEDS ORDERED: MULT-230 MT (23:18)
== END 2024-05-26 23:46 | disposition home or self-care (01) ==
LOC: ER 19:36
DX: K22.6 Gastro-esophageal laceration-hemorrhage syndrome (principal); K70.10 Alcoholic hepatitis without ascites; Z79.899 Other long term (current) drug therapy; Z91.013 Allergy to seafood
CPT/HCPCS: 99284; 96374; 71045; 80076; 80048; 83690; 85025; 85610; 36415; J2470

== ENCOUNTER 2024-11-15 02:20 | Inpatient (IN) | payer OTHER, MEDICAID ==
[~2024-11-15] VITALS: Ht 172.7 cm; Wt 113.4 kg
[~2024-11-15 02:20] MED LIST changes: +AMLO5TAB88 MT; +LIP40 MT; +ONDA4TAB50 MT; +PROT20 MT
[2024-11-15 02:24] VITALS: O2SAT 100
[2024-11-15] MEDS: ASPIRIN 81MG TABLET PO ONE (04:27)
[2024-11-15 04:30] LABS: BASOPHILS % 0.9 % (0.0-2.0); EOSINOPHILS % 2.3 % (0.0-5.0); HEMATOCRIT. 38.0 % (42.0-52.0); HEMOGLOBIN. 13.3 g/dL (14.0-18.0); LYMPHOCYTES % 38.2 % (20.0-50.0); MEAN PLATELET VOLUME 7.5 fl (7.4-10.4); MONOCYTES % 5.2 % (2.0-8.0); NEUTROPHILS % 53.4 % (40.0-76.0); PLATELET 148 x1000/uL (130-400); RED BLOOD CELL COUNT 4.25 mill/uL (4.7-6.1); RED CELL DISTRIBUTION WIDTH 13.3 % (11.6-14.6)
[2024-11-15] MEDS: NITROGLYCERIN 0.4MG TABLET SL SL PRN (04:30)
[2024-11-15] MEDS: SODIUM CHLORIDE 0.9% 1,000 ML IV ONE ×2 (04:40→04:46)
[2024-11-15 04:43] LABS: CREATININE 0.8 mg/dL (0.6-1.3); ETHANOL BLOOD 285 mg/dL (<10); UREA NITROGEN BLOOD 8 mg/dL (9-23)
[2024-11-15 04:44] LABS: TROPONIN I HIGH SENSITIVITY < 4 ng/L (3.0-53)
[2024-11-15 04:45] LABS: ASPARTATE AMINOTRANSFERASE 99 IU/L (<34); BILIRUBIN DIRECT 0.2 mg/dL (<=3.0); BILIRUBIN TOTAL 0.7 mg/dL (0.1-1.0); PROTEIN TOTAL 8.0 g/dL (6.0-8.3)
[2024-11-15] MEDS: ONDANSETRON HCL 4MG/2ML INJ IV ONE (04:55)
[2024-11-15 09:30] VITALS: BP 108/74; PULSE 60; RESP 16; TEMP 37.0296
[2024-11-15 10:00] VITALS: BP 108/74; PULSE 76; RESP 15; O2SAT 93
[2024-11-15] MEDS ORDERED: KCL 20MEQ/100ML PREMIX 100 ML IV SCH (11:30)
[2024-11-15] MEDS ORDERED: DIPHENHYDRAMINE 50MG/ML VIAL IV PRN (11:30)
[2024-11-15] MEDS ORDERED: ACETAMINOPHEN 325MG TABLET PO PRN (11:30)
[2024-11-15 12:00] VITALS: BP 136/97; PULSE 98; RESP 29; TEMP 36.1; O2SAT 99
[2024-11-15 12:28] LABS: HEPATITIS C AB NON REACTIVE (Neg) (Negative)
[2024-11-15] MEDS: KCL 20MEQ/100ML PREMIX 100 ML IV SCH (13:01)
[2024-11-15] MEDS: PANTOPRAZOLE SODIUM 40 MG/VIAL IV SCH (13:01)
[2024-11-15] MEDS: KETOROLAC 30MG/ML VIAL IV PRN (13:15)
[2024-11-15] MEDS: MVI, ADULT NO.1 10 ML, FOLIC ACID 1 MG, THIAMINE HCL 100 MG in SODIUM CHLORIDE 0.9% 1,0... IV SCH (13:48)
[2024-11-15 16:00] VITALS: BP 134/95; PULSE 84; RESP 19; TEMP 36.5
[2024-11-15] MEDS: ONDANSETRON HCL 4MG/2ML INJ IV PRN (16:03)
[2024-11-15] MEDS: CHLORDIAZEPOXIDE 25MG CAPSULE PO SCH (16:03)
[2024-11-15 20:00] VITALS: BP 136/106; PULSE 80; RESP 29; TEMP 36.7; O2SAT 97
[2024-11-15] MEDS: ZOLPIDEM TARTRATE 5MG TABLET PO PRN (21:21)
[2024-11-15] MEDS: SODIUM CHLORIDE 0.9% 1,000 ML IV SCH (21:21)
[2024-11-15] MEDS: ACETAMINOPHEN 325MG TABLET PO PRN (21:28)
[2024-11-16] VITALS: BP 140/90; PULSE 68; RESP 15; TEMP 36.9; O2SAT 95
[2024-11-16 04:00] VITALS: BP 114/67; PULSE 68; RESP 17; TEMP 36.5; O2SAT 99
[2024-11-16 08:00] VITALS: BP 120/65; PULSE 76; RESP 23; TEMP 37.2; O2SAT 99
[2024-11-16 08:26] LABS: BASOPHILS % 0.6 % (0.0-2.0); EOSINOPHILS % 5.8 % (0.0-5.0); HEMATOCRIT. 34.9 % (42.0-52.0); HEMOGLOBIN. 12.0 g/dL (14.0-18.0); LYMPHOCYTES % 29.1 % (20.0-50.0); MEAN PLATELET VOLUME 8.6 fl (7.4-10.4); MONOCYTES % 4.1 % (2.0-8.0); NEUTROPHILS % 60.4 % (40.0-76.0); PLATELET 75 x1000/uL (130-400); RED BLOOD CELL COUNT 3.80 mill/uL (4.7-6.1); RED CELL DISTRIBUTION WIDTH 13.0 % (11.6-14.6)
[2024-11-16 08:43] LABS: CREATININE 0.6 mg/dL (0.6-1.3); UREA NITROGEN BLOOD 11 mg/dL (9-23)
[2024-11-16 08:45] LABS: PHOSPHORUS 2.0 mg/dL (2.5-4.9)
[2024-11-16] MEDS: POTASSIUM CHLORIDE 20MEQ TABLET SR PO SCH (10:24)
[2024-11-16] MEDS: POTASSIUM PHOSPHATE 20 MMOL in DEXT 5% WATER 243.3333 ML IV ONE (11:35)
[2024-11-16] MEDS: MAGNESIUM 4 G PREMIX 100 ML IV ONE (11:36)
[2024-11-16 12:00] VITALS: BP 129/97; PULSE 70; RESP 17; TEMP 37.2; O2SAT 100
[2024-11-16] MEDS: DIAZEPAM 5 MG/ML 2ML SYR IV PRN (14:36)
[2024-11-16 16:00] VITALS: PULSE 63; RESP 25; TEMP 36.7; O2SAT 99
[2024-11-16 17:03] LABS: *AMPHETAMINES SCREEN URINE NEGATIVE (NEGATIVE); *BARBITURATES SCREEN URINE NEGATIVE (NEGATIVE); *BENZODIAZEPINES SCREEN URINE PRESUMPTIVE POSITIVE (NEGATIVE); *COCAINE SCREEN URINE NEGATIVE (NEGATIVE); CANNABINOID URINE SCREEN PRESUMPTIVE POSITIVE (NEGATIVE); ECSTASY MDMA SCREEN URINE NEGATIVE (NEGATIVE); METHADONE URINE SCREEN NEGATIVE (NEGATIVE); OPIATES URINE SCREEN NEGATIVE (NEGATIVE); PHENCYCLIDINE URINE SCREEN NEGATIVE (NEGATIVE)
[2024-11-16 20:00] VITALS: BP 119/98; PULSE 76; RESP 21; TEMP 36.7; O2SAT 83
[2024-11-16 22:01] LABS: BASOPHILS % 0.6 % (0.0-2.0); EOSINOPHILS % 6.1 % (0.0-5.0); HEMATOCRIT. 34.0 % (42.0-52.0); HEMOGLOBIN. 12.0 g/dL (14.0-18.0); LYMPHOCYTES % 24.9 % (20.0-50.0); MEAN PLATELET VOLUME 8.6 fl (7.4-10.4); MONOCYTES % 4.9 % (2.0-8.0); NEUTROPHILS % 63.5 % (40.0-76.0); PLATELET 92 x1000/uL (130-400); RED BLOOD CELL COUNT 3.80 mill/uL (4.7-6.1); RED CELL DISTRIBUTION WIDTH 13.0 % (11.6-14.6)
[2024-11-16] MEDS: SODIUM CHLORIDE 0.9% 1,000 ML IV SCH (22:25)
[2024-11-16] MEDS: CHLORDIAZEPOXIDE 25MG CAPSULE PO SCH (22:30)
[2024-11-17] VITALS: BP 114/84; PULSE 65; RESP 26; TEMP 36.4; O2SAT 97
[2024-11-17 04:00] VITALS: BP 132/92; PULSE 74; RESP 18; TEMP 36.6; O2SAT 98
[2024-11-17 07:18] LABS: CREATININE 0.6 mg/dL (0.6-1.3); UREA NITROGEN BLOOD < 5 mg/dL (9-23)
[2024-11-17 07:20] LABS: PHOSPHORUS 2.2 mg/dL (2.5-4.9)
[2024-11-17 08:00] VITALS: BP 118/85; PULSE 67; RESP 17; TEMP 36.9; O2SAT 97
[2024-11-17] MEDS: POTASSIUM CHLORIDE 20MEQ TABLET SR PO SCH ×2 (10:12→16:19)
[2024-11-17] MEDS: PANTOPRAZOLE SODIUM 40 MG/VIAL IV SCH (10:22)
[2024-11-17] MEDS: POTASSIUM PHOSPHATE 15 MMOL in DEXT 5% WATER 245 ML IV NR (11:50)
[2024-11-17 12:00] VITALS: BP 128/77; PULSE 76; RESP 18; TEMP 37.3; O2SAT 98
[2024-11-17 16:00] VITALS: BP 122/80; PULSE 79; RESP 18; TEMP 36.8; O2SAT 99
[2024-11-17 20:00] VITALS: BP 115/72; PULSE 78; RESP 16; TEMP 36.6; O2SAT 99
[2024-11-18] VITALS: BP 127/82; PULSE 69; RESP 18; TEMP 36.4; O2SAT 97
[2024-11-18 04:00] VITALS: BP 118/76; PULSE 72; RESP 18; TEMP 36.7; O2SAT 97
[2024-11-18 08:00] VITALS: BP 125/86; PULSE 71; RESP 20; TEMP 36.5; O2SAT 98
[2024-11-18 11:04] LABS: PLATELET 95 x1000/uL (130-400); RED BLOOD CELL COUNT 3.76 mill/uL (4.7-6.1); RED CELL DISTRIBUTION WIDTH 12.9 % (11.6-14.6)
[2024-11-18 11:24] LABS: CREATININE 0.7 mg/dL (0.6-1.3)
[2024-11-18 11:25] LABS: UREA NITROGEN BLOOD 5 mg/dL (9-23)
[2024-11-18 11:27] LABS: PHOSPHORUS 1.9 mg/dL (2.5-4.9)
[2024-11-18 12:00] VITALS: BP 115/74; PULSE 77; RESP 18; TEMP 36.7; O2SAT 98
[2024-11-18] MEDS: SUCRALFATE 1G TABLET PO SCH (12:39)
[2024-11-18 16:00] VITALS: BP 123/72; PULSE 70; RESP 18; TEMP 36.3; O2SAT 98
[2024-11-18] MEDS: POTASSIUM CHLORIDE 20MEQ TABLET SR PO SCH (16:46)
[2024-11-18] MEDS: POTASSIUM PHOSPHATE 20 MMOL in DEXT 5% WATER 243.3333 ML IV SCH (16:47)
[2024-11-18 20:00] VITALS: BP 118/73; PULSE 71; RESP 18; TEMP 36.5; O2SAT 99
[2024-11-18] MEDS: MAGNESIUM 4 G PREMIX 100 ML IV SCH (22:15)
[2024-11-19] VITALS: BP 117/72; PULSE 70; RESP 17; TEMP 36.4; O2SAT 99
[2024-11-19 04:00] VITALS: BP 117/76; PULSE 72; RESP 18; TEMP 36.5; O2SAT 98
[2024-11-19 08:00] VITALS: BP 123/93; PULSE 77; RESP 17; TEMP 36.4; O2SAT 97
[2024-11-19 16:00] VITALS: BP 116/77; PULSE 83; RESP 16; TEMP 36.6; O2SAT 99
[2024-11-19] MEDS ORDERED: SUCR1TAB PO (16:28)
[2024-11-19 17:45] VITALS: BP 116/77; PULSE 83; TEMP 97.8
== END 2024-11-19 18:30 | disposition home or self-care (01) | DRG 243 ==
LOC: ER 02:33 → 5EST 05:23 → EDBEDREQ 05:29 → EDBEDREQTM 05:29 → ENRESERV 08:22 → 7EST 11-17 00:23
PROVIDERS: ADMIT Internal Medicine; ATTEND Internal Medicine
DX: K20.90 Esophagitis, unspecified without bleeding (principal); F10.231 Alcohol dependence with withdrawal delirium; E83.39 Other disorders of phosphorus metabolism; K29.20 Alcoholic gastritis without bleeding; E87.6 Hypokalemia; E83.42 Hypomagnesemia; Y90.8 Blood alcohol level of 240 mg/100 ml or more; Z91.013 Allergy to seafood; Z79.899 Other long term (current) drug therapy
CPT/HCPCS: 36415; 71045; 80048; 80076; 80305; 80320; 82270; 83735; 84100; 84484; 85025; 85027; 86705; 87340; 93005; 99285; A4606; J1200; J1885; J2405; J2470; J3411; J3475; J3480; J3490; J7030; J7060; G0480